=== PATIENT | male | born 1980 | race Two or more races ===

== ENCOUNTER 2022-06-27 09:01 | Day surgery (SDC) | payer BC ==
[~2022-06-27] VITALS: Ht 172.7 cm; Wt 86.2 kg
[~2022-06-27 09:01] MED LIST: ATOR20TA50 PO; INSLISPI SC; INSU75IN2 SC; ISOS1TAB28 PO; LOSA100T25 PO; METO1TAB9 PO
[2022-06-27] MEDS ORDERED: IODIXANOL 320MG/ML 100ML BTL IV ONE (09:39)
[2022-06-27] MEDS ORDERED: LIDOCAINE 2%HCL (LOCAL ANESTH.) INJ 20ML MDV ONE (09:39)
[2022-06-27] MEDS ORDERED: HEPARIN SODIUM (PORCINE) 5000 UNITS/ML 1ML VIAL ONE (09:55)
[2022-06-27] MEDS ORDERED: ANGIOMAX 250 MG VIAL IV ONE (09:55)
[2022-06-27] MEDS ORDERED: fentaNYL CITRATE 100 MCG/2 ML VL ONE (09:55)
[2022-06-27] MEDS ORDERED: VERAPAMIL 2.5MG/ML INJ 2ML VIAL IV ONE (09:55)
[2022-06-27] MEDS ORDERED: SODIUM CHL 0.9% 0 ML ONE (09:56)
[2022-06-27] MEDS ORDERED: MIDAZOLAM HCL 2MG/2ML 2ml VIAL (1mg/ml) ONE (09:56)
== END 2022-06-27 12:46 | disposition home or self-care (01) ==
LOC: CATH 09:01
PROVIDERS: ATTEND Internal Medicine
DX: R94.39 Abnormal result of other cardiovascular function study (principal); I25.10 Atherosclerotic heart disease of native coronary artery without angina pectoris; Z87.891 Personal history of nicotine dependence; Z20.822 Contact with and (suspected) exposure to COVID-19
CPT/HCPCS: 93458; C1887; C1894; J1644; J2250; J3010; Q9967; U0003; 99152

== ENCOUNTER 2025-07-27 06:17 | Day surgery (SDC) | payer MEDICAID ==
[~2025-07-27] VITALS: Ht 172.7 cm; Wt 90.7 kg
[~2025-07-27 06:17] MED LIST changes: +AMLO1TAB23 PO; +ASPI81CH59 PO; +BUMEX2MG PO; +GABA-1250 PO; -INSLISPI SC; -ISOS1TAB28 PO; +LOSA100T14 PO; -LOSA100T25 PO; +METO-6 PO; -METO1TAB9 PO; +OMEP-434 PO; +SEVE800T8 PO
[2025-07-27] MEDS ORDERED: HEPARIN SODIUM (PORCINE) 5000 UNITS/ML 1ML VIAL ONE (07:06)
[2025-07-27] MEDS ORDERED: MIDAZOLAM HCL 2MG/2ML 2ml VIAL (1mg/ml) ONE (07:27)
[2025-07-27] MEDS ORDERED: fentaNYL CITRATE 100 MCG/2 ML VL ONE (07:27)
[2025-07-27] MEDS ORDERED: METOCLOPRAMIDE HCL 5MG/ml INJ 2ml VIAL ONE (07:28)
[2025-07-27] MEDS ORDERED: ETOMIDATE (2MG/ML) 20ML VIAL IV ONE (07:28)
[2025-07-27] MEDS ORDERED: LIDOCAINE 1% INJ PF 5ML AMP ONE (07:28)
[2025-07-27] MEDS ORDERED: ONDANSETRON HCL 4 MG/2 ML VIAL ONE (07:28)
[2025-07-27] MEDS: ceFAZolin 2 GM/D5W50ml 50 ML IV ONE (07:31)
[2025-07-27 07:43] LABS: Chloride 103 mmol/L (98-107); Sodium 138 mmol/L (136-145)
[2025-07-27 07:44] LABS: Anion Gap 14 (5-15); Carbon Dioxide 21 mmol/L (20-31)
[2025-07-27 07:50] LABS: BUN/Creatinine Ratio 5.3 (10.0-20.0)
--- NOTE | 2025-07-27 07:52 | DVH ---
CHEST RADIOGRAPH Indication: pre-op eval Technique: Single frontal view of the chest was obtained Comparison: None FINDINGS: Lines and Tubes: There is a right central venous catheter with its tip terminating in the right atriu m. Lungs: No focal consolidation. Pleura: No effusion. No pneumothorax. Cardiomediastinal contours: Cardiomegaly. Bones: No acute osseous abnormality. Status post median sternotomy. IMPRESSION: 1. No acute pulmonary disease. 2. Cardiomegaly.
[2025-07-27] MEDS: BUPIVACAINE 0.25% INJ 50ML VIAL ONE (07:54)
[2025-07-27] MEDS: LIDOCAINE 1% HCL (LOCAL ANESTH.) INJ 20ML MDV ONE (07:54)
[2025-07-27 08:14] LABS: Blood Urea Nitrogen 59 mg/dL (9-23); Calcium 6.6 mg/dL (8.7-10.4); Glucose 187 mg/dL (74-106)
[2025-07-27 08:37] LABS: Potassium 7.4 mmol/L (3.5-5.1)
[2025-07-27] MEDS ORDERED: ROPIVACAINE 0.5% (5MG/ML) 20ML AMPULE IJ ONE (08:47)
[2025-07-27 09:00] VITALS: PULSE 55; RESP 12; TEMP 97.6; O2SAT 90
--- NOTE | 2025-07-27 09:05 | DVHOP2 ---
Operative Report - 2 Report Details Date: 07/27/25 Preop Diagnosis: esrd need for dialysis access Postop Diagnosis: esrd Surgeon: Sam Mendez MD Anesthesiologist: NICOLE Anesthesia: General Consent: The patient was informed of the risks and benefits of the procedure. These include but are not limited to complications of anesthesia, postoperative infection, incomplete relief of symptoms, recurrence of symptoms, damage to blood vessels, nerves and tendons, deep venous thrombosis, pulmonary embolism and possible need for repeat surgery in the future. Estimated Blood Loss: 35 mL Indications for Surgery: End-stage renal disease Name of Procedure Performed Left radiocephalic arteriovenous fistula creation Procedure Details Procedure Details: Patient was identified in the preop hold area. He was consented in preop by myself. He was then taken back to the operating room placed the operating table in supine position after adequate induction of anesthesia antibiotics and time- out. Patient left arm was prepped and draped in normal surgical fashion a longitudinal incision was made at the level just above the risks between the radial artery in the cephalic vein. Dissection was taken down to the cephalic vein which there were multiple small branches which were ligated with 3-0 silk sutures. The vein appeared healthy was small however when it is dilated it dila meagan up to 3.5 mm without difficulty and flushed very well. Attention was then placed to identify in the radial artery radial artery was mobilized proximally and distally with vessel loops were placed proximally and distally. 3000 units of heparin was given to the patient IV. The cephalic vein was then spatulated and once again flushed and dilated 3.5 mm. The radial artery was proximally and distally clamped. Arteriotomy was made with a 11 blade followed by Munoz scissors. The cephalic vein was then sewn to the radial artery in an end-to-side fashion with seven 0 Prolene suture. At the completion of the anastomosis all vessels were flushed with heparinized saline prior to tying down the anastomosis. The anastomosis was complete vessels were all unclamped. Flow was restored. There was immediate thrill felt. Doppler signals confirmed the radial artery was patent proximally and distally as well as the cephalic vein was patent. The wound was then irrigated out. 1% lidocaine was injected for subcutaneous and wound was then closed with a deep layer of 3-0 Vicryl sutures followed by skin closure with 4-0 Monocryl subcuticular suture. Dermabond was applied to the skin a sterile dressing was applied. The sponge needle counts were correct. The patient was taken to the PACU in stable condition. Condition Good Disposition Home SAM MENDEZ Jr., MD Jul 27, 2025 09:05
[2025-07-27 09:30] VITALS: PULSE 54; RESP 13; O2SAT 94
[2025-07-27 10:05] VITALS: BP 151/89; PULSE 55; RESP 12; O2SAT 95
== END 2025-07-27 10:25 | disposition home or self-care (01) ==
LOC: SUR 06:17
PROVIDERS: ATTEND Surgery Vascular Surgery
DX: I12.0 Hypertensive chronic kidney disease with stage 5 chronic kidney disease or end stage renal disease (principal); E11.22 Type 2 diabetes mellitus with diabetic chronic kidney disease; N18.6 End stage renal disease; K21.9 Gastro-esophageal reflux disease without esophagitis; E66.01 Morbid (severe) obesity due to excess calories; Z79.82 Long term (current) use of aspirin; Z79.4 Long term (current) use of insulin; Z87.891 Personal history of nicotine dependence; Z98.890 Other specified postprocedural states; Z95.1 Presence of aortocoronary bypass graft; Z68.41 Body mass index [BMI] 40.0-44.9, adult; Z68.42 Body mass index [BMI] 45.0-49.9, adult
CPT/HCPCS: 36415; 36821; 71045; 80048; 82962; 86850; 86900; 86901; J0690; J1644; J2003; J2250; J2405; J2765; J2795; J3010; J3490